=== PATIENT | male | born 1935 | race Caucasian/White ===

== ENCOUNTER 2019-02-21 20:31 | Inpatient (IN) | payer OTHER, MEDICARE ==
[~2019-02-21] VITALS: Ht 172.7 cm; Wt 114.8 kg
--- NOTE | ~2019-02-21 | HC ---
[facility] [place] [address] CONSULTATION Name: STEPHENSEYMOUR DUNNE Mateo Room #: 238-P ADM IN M.R.#: [id number] Admission: 02/22/19 ������������������ Attend Phys: Paulina De La Rosa MD Discharge: ������������������ Date of : 37 Report #: [id number] THIS REPORT FOR: //name// CC: Paulina Dailymasood DATE OF SERVICE: 02/25/2019 REASON FOR CONSULTATION: Elevating creatinine. HISTORY OF PRESENT ILLNESS: This 83-year-old gentleman with a longstanding diabetes and hypertension, has had progressive cerebellar degeneration with unsteadiness and falls and was found down on his garage floor for many hours. He presented with rhabdomyolysis and CPK greater than 12,000. He received intensive IV fluids over several days, became swollen progressively short winded and his creatinine then subsequently has been elevating. He was 2.3 at the time of admission down to 1.8 and now back up to 2.8. While the patient denies any previous renal problems, he has longstanding diabetes and proteinuria and 6 years ago at this hospital had a creatinine of 1.3. PAST MEDICAL HISTORY: Difficult to communicate with the patient as he is on CPAP and not answering questions well. He has the diabetes and hypertension, cerebellar degeneration as mentioned above. 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 He has got sleep apnea and uses CPAP at night, history of hypertension and had trauma to his left testicle and that was excised 8 years ago. HOME MEDICATIONS: Reportedly metoprolol tartrate 25 mg b.i.d., omeprazole 20 mg daily, iron, alprazolam p.r.n. and a combination of lisinopril and hydrochlorothiazide. SOCIAL HISTORY: He is a cigarette smoker. He does not use alcohol. Lives at home by himself and has the CPAP as mentioned. ALLERGIES: No known drug allergies are mentioned. REVIEW OF SYSTEMS: Very difficult to discern due to his being on CPAP and difficult to understand and communicate with. Apparently, he has had generalized weakness. He has had some generalized pain. He has not had angina. He has had progressive shortness of air, but not severe. Appetite has been fair. There is a question about his swallowing amplitude. No nausea or vomiting. PHYSICAL EXAMINATION: GENERAL: This is a somewhat overweight gentleman, somewhat catracho complected. He has CPAP on. [facility] [address] [place] [address] CONSULTATION Name: SEYMOUR MARI Room #: 238-P [facility]#: [id number] Admission: 02/22/19 ������������������ Attend Phys: Paulina De La Rosa MD Discharge: ������������������ Date of : 37 Report #: [id number] SKIN: Otherwise unremarkable. SKELETAL: Shows him to be well developed and well nourished. HEENT: Extraocular movements appear to be full and vision is intact. Mucous membranes are not examined. CPAP is on. NECK: Supple. CHEST: Shows diminished breath sounds, which are somewhat coarse and noisy. HEART: Distant. ABDOMEN: Distended and nontender. EXTREMITIES: Show trace peripheral edema throughout. NEUROLOGIC: Shows generalized weakness, but he does have a symmetric sensory and motor examination. LABORATORY DATA: His urinalysis initially did show 2+ protein and it also showed 3+ blood at the time when his CPK was over 12,000, very few red cells. Hemoglobin is 11.4, white count 14,000 and his initial white count was 20,000 with 19% bands. Sodium 138, potassium 4.7, chloride 98, bicarbonate 30, BUN 63 and creatinine 2.8. ASSESSMENT: 1. Acute on chronic kidney disease. He appears to have underlying CKD. A renal sonogram and paraprotein studies are indicated and we will check those. He may have gotten additionally fluid overloaded. His blood pressure has dropped and I am unclear about etiology for that. He is not perfusing his kidneys possibly as well with the lower blood pressure. Certainly, he does appear to be somewhat volume overloaded, but did not respond with vigorous urine output when he received IV furosemide earlier today. We will reevaluate and possibly try a higher dose of IV Lasix. He is being transferred down to ICU and at this point he may be developing acute kidney injury for unknown reasons and certainly will bear close watching over the next couple of days. 2. Rhabdomyolysis. 3. History of diabetes mellitus. 4. History of hypertension. ��������������������������������������������� ���������������������������������������� By: ��������������������������������������������� [id number] Fran Mann MD /nt
--- NOTE | ~2019-02-21 | HC ---
[facility] [place] [address] CONSULTATION Name: STEPHENSEYMOUR DUNNE Mateo Room #: 356-P ADM IN M.R.#: [id number] Admission: 02/22/19 ������������������ Attend Phys: Paulina De La Rosa MD Discharge: ������������������ Date of : 37 Report #: [id number] THIS REPORT FOR: //name// CC: Paulina Dailymasood DATE OF SERVICE: 02/24/2019 HISTORY OF PRESENT ILLNESS: The patient is an 83-year-old male with a history of cerebellar degeneration, but he notes he has had all his life vertigo, frequent falls, admitted through the ED for evaluation after a fall that occurred on 02/22/2019. He was going to his garage when he became dizzy and fell. It took him 4-5 hours to crawl to his garage track fitter to open a door and alert a neighbor who called EMS. His arms and legs were weak and "felt like " He was admitted, noted to have severe rhabdomyolysis with CK of 12,850. He had acute renal insufficiency superimposed on chronic kidney disease with BUN up to 47, creatinine 2.3. He has been rehydrated and given normal saline. He has considerable weakness. We are seeing him in rehabilitation medicine consultation. PAST MEDICAL HISTORY: Includes exogenous obesity, diabetes mellitus type 2, obstructive sleep apnea, hypertension, right lower lobectomy. ALLERGIES: No known drug allergies. MEDICATIONS: Please see the full medication listing. This includes vitamins, herbals, and supplements. Past history also includes non-insulin dependent diabetes mellitus and a left testicle removed due to trauma. HABITS: Noted to be a current every day smoker. No history of alcohol abuse. SOCIAL HISTORY: Lives in a house alone. No steps in and then 2 steps inside. Premorbid cane versus 4-wheeled walker ambulator. Notes that he has had some chronic balance problems with his cerebellar degeneration that he has had "all my life." REVIEW OF SYSTEMS: Complains of being weak, generalized. He has some diffuse muscular pain. No complaints of chest pain, shortness of breath, abdominal discomfort. PHYSICAL EXAMINATION: GENERAL: An 83-year-old pleasant, obese white male in no obvious distress. He is on 4 liters nasal cannula. NEUROLOGIC: Facies appeared symmetric. Follows basic commands. Appears to be [facility] [address] [place] [address] CONSULTATION Name: SEYMOUR MARI Mateo Room #: 356-P [facility] IN ..#: [id number] Admission: 02/22/19 ������������������ Attend Phys: Paulina De La Rosa MD Discharge: ������������������ Date of : 37 Report #: [id number] a reasonable historian. Functional range of motion of both upper extremities. Strength is a grade 3+/5. Lower extremities functional range of motion, strength is grade 3+/5. No focal calf swelling. Tone appeared to be intact. He did fairly well with [id number] upper extremities. EOMs were full. No obvious nystagmus. IMPRESSION: An 83-year-old white male with the following problem list: 1. Cerebellar degeneration with gait instability. 2. Acute rhabdomyolysis. 3. Acute renal insufficiency superimposed on chronic kidney disease. 4. Diffuse weakness and debilitation. 5. Gait instability with history of falls. 6. Diabetes mellitus type 2. 7. Obstructive sleep apnea. 8. Exogenous obesity. 9. Hypertension. PLAN: Therapy evaluations are underway. We will see if he has the therapy tolerance for an acute [address] [place] [address] inpatient rehabilitation stay. We will be glad to follow along with you regarding his rehab therapy needs. ��������������������������������������������� ���������������������������������������� By: ��������������������������������������������� 0937 1311 Feliciano Mo MD /PMT
[~2019-02-21 20:31] MED LIST: ACTOS15 MG PO; ALPRAZOLAM 0.0.25 MG PO; ASPIRIN EC325 M1 PO; ASPIRIN EC81 M1 PO; AUGMENTIN; CIPROFLOXACIN500 M1 PO; FINASTERIDE PO; HYDROCODONE-AP1 EAC6; LISINOPRIL-HCT1 EAC1 PO; LOPRESSOR25 PO; MEDROLDOSEPACK PO; METOPROLOL SUCC25 M1 PO; OMEPRAZOLE 20 M20 M1 PO; PERCOCET 5-3251 EACH PO; SLOW FE 160MG160 MG PO; TRAMADOL 50 MG50 MG PO; prostate med
[2019-02-21 20:32] VITALS: BP 91/44
[2019-02-21 22:23] LABS: HEMATOCRIT 41.1 % (42.0-52.0); HEMOGLOBIN 13.9 gm/dL (14.0-18.0); MCH 29.2 pg (26.0-34.0); MCHC 33.8 g/dL (28.0-37.0); MCV 86.4 fL (80.0-100.0); PLATELET COUNT 229 thou/uL (150-400); RBC 4.75 mil/uL (4.50-6.00); RDW 14.3 % (10.5-14.5)
[2019-02-21 22:39] LABS: ANION GAP 12 mmol/L (7-16); BUN 40 mg/dL (7-18); CALCIUM 8.6 mg/dL (8.5-10.1); CHLORIDE 100 mmol/L (98-107); CO2 27 mmol/L (21-32); CREATININE 2.3 mg/dL (0.7-1.3); GLUCOSE 138 mg/dL (74-106); POTASSIUM 4.1 mmol/L (3.5-5.1); SODIUM 139 mmol/L (136-145)
[2019-02-21 22:57] LABS: DIRECT BILIRUBIN 0.3 mg/dL (<0.1-0.3); SGOT 139 U/L (15-37); SGPT 28 U/L (30-65); TOTAL BILIRUBIN 1.2 mg/dL (<0.1-1.0); TOTAL PROTEIN 7.3 g/dL (6.4-8.2); TROPONIN-I <0.06 ng/mL (<0.06)
[2019-02-21 22:59] LABS: PLATELET ESTIMATE NORMAL
[2019-02-22 02:35] LABS: URINE BILIRUBIN NEGATIVE (Negative); URINE BLOOD 3+ (Negative); URINE CLARITY CLEAR; URINE COLOR YELLOW; URINE GLUCOSE-RANDOM* NEGATIVE (Negative); URINE KETONES NEGATIVE (Negative); URINE LEUKOCYTES-REFLEX TRACE (Negative); URINE NITRITE-REFLEX NEGATIVE (Negative); URINE PROTEIN (DIPSTICK) 2+ (Negative); URINE UROBILINOGEN 0.2 E.U./dl (0.2-1.0)
[2019-02-22 02:39] VITALS: BP 184/64
[2019-02-22 02:40] LABS: AMORPHOUS URATES Moderate /LPF (None Seen); BACTERIA-REFLEX 1-9 Few /HPF (None Seen); CASTS None Seen /LPF (None Seen); MUCUS None Seen strn/LPF (None Seen); SQUAMOUS None Seen /LPF (0-3); URINE RBC 3-10 Few /HPF (0-2); URINE WBC-REFLEX 6-15 Few /HPF (0-5)
[2019-02-22 02:41] LABS: CRYSTALS None Seen /LPF (None Seen)
[2019-02-22 04:30] VITALS: BP 145/62
[2019-02-22 05:34] LABS: HEMATOCRIT 36.3 % (42.0-52.0); HEMOGLOBIN 12.1 gm/dL (14.0-18.0); MCH 29.1 pg (26.0-34.0); MCHC 33.3 g/dL (28.0-37.0); MCV 87.4 fL (80.0-100.0); RBC 4.16 mil/uL (4.50-6.00); RDW 14.6 % (10.5-14.5); WBC 14.3 thou/uL (4.0-11.0)
[2019-02-22 06:05] LABS: ALBUMIN 2.5 g/dL (3.4-5.0); CALCIUM 7.4 mg/dL (8.5-10.1); POTASSIUM 3.8 mmol/L (3.5-5.1); TOTAL BILIRUBIN 0.9 mg/dL (<0.1-1.0); TOTAL PROTEIN 5.7 g/dL (6.4-8.2)
[2019-02-22 07:15] VITALS: BP 138/65
--- NOTE | 2019-02-22 07:24 | NUR ---
Received pt from ED at 1845. Pt AOX4. VSS. IV R AC with NS @150. Small abrasions on both knees and elbows. Pt is too weak to leave the bed. Has been having generalized pain. Gave tramadol once. ACHS. Sarmiento intact. No identified needs at the moment. Will continue to monitor.
--- NOTE | 2019-02-22 09:14 | EKG ---
[address] [employer] [place] [address] ELECTROCARDIOGRAM REPORT Name: SEYMOUR MARI Room #: 460-P ADM IN M.R.#: [id number] ������������������ Admission: 02/22/19 ������������������ Attend Phys: Paulina De La Rosa MD Discharge: ������������������ Date of : 37 Report #: [id number] ����������������������������������������������������������������� [id number] THIS REPORT FOR: //name// [facility] ED Test Date: 2019-02-21 Test Time: 20:51:02 Pat Name: SEYMOUR MARI Department: Room: 460 Gender: M Product Transfer Pumper: EDITH : 1935 Requested By: Marly Saldivar Order Number: [id number] MD: Nic Parisi Measurements Intervals [place] Rate: 95 P: 41 VT: 171 QRS: 85 QRSD: 148 T: 2 QT: 391 QTc: 492 Interpretive Statements Sinus arrhythmia Right bundle branch block Compared to ECG 09/30/2012 14:03:12 Right bundle-branch block now present Electronically Signed On 02-22-2019 9:14:01 CDT by Nic Parisi [email or web address] ��������������������������������������������� <ELECTRONICALLY SIGNED> ���������������������������������������� By: Nic Parisi MD, [facility] ��������������������������������������������� 02/22/1912 50 50 Nic Parisi MD, [facility] /EPI
[2019-02-22 15:20] VITALS: BP 128/57
[2019-02-22 20:26] VITALS: BP 141/65
--- NOTE | 2019-02-22 20:27 | NUR ---
ASSUMED CARE OF PATIENT AT 0715, PATIENT ALERT AND ORIENTED X 4. PATIENT C/O PAIN GENERALIZED OVER BODY, DUE TO FALL IN GARAGE AT HOME. PATIENT HAS BRUISING/SCRAPES/ABRASIONS TO BILATERAL ELBOWS/BILATERAL KNEES. PATIENT RECEIVED TRAMADOL 50MG 1 TABLET X 1 THIS SHIFT, JUST PARTIAL RELIEF. NOTIFIED DR LINO, ORDERS PUT IN FOR MORPHINE 4 MG IV, RECEIVED X 1 THIS SHIFT WITH GOOD RELIEF. PATIENT ALSO RECEIVED XANAX O.25 MG X 1 THIS SHIFT. PATIENT RESTED WELL AFTER BOTH GIVEN. PATIENT HAD 1 RUGHT UPPER IV AND THIS RN HAD IV TEAM/IVAN PLACE ANOTHER IV RIGHT FOREARM, PATIENT HAS NS AT 75CC/HR AND SODIUM BICARB GOING AT 75CC/HR CONTINOUS PER DR LINO. PATIENT REFUSED ALL MEALS TODAY, STATES HE HAS NO APPETITE, ENCOURAGE TO EAT SOMETHING, MAY HAVE SNACK LATER ON NIGHTSHIFT. PATIENT HAS BECKETT CATHETER IN PLACE WITH GOOD OUTPUT. WILL CONTINUE TO MONITOR.
--- NOTE | 2019-02-23 01:55 | NUR ---
Assumed care at 1845. Pt resting in bed. AOX4. VSS. BP remains stable. Sarmiento intact. Gave morphine onetime for generalized pain. Pt still hasnt left the bed. Pt also hasnt eaten all day. Last blood sugar was 107. No identified needs at the moment. Call light within reach. Will continue to monitor.
[2019-02-23 03:51] VITALS: BP 134/56
[2019-02-23 05:22] LABS: CALCIUM 7.2 mg/dL (8.5-10.1); CREATININE 1.8 mg/dL (0.7-1.3)
[2019-02-23 07:19] VITALS: BP 137/62
[2019-02-23 14:37] VITALS: BP 151/76
--- NOTE | 2019-02-23 14:57 | NUR ---
PT ADMITTED RELATED TO JENNIFER, Leukocytosis, Rhabdomyolysis. CM REVIEWED CHART AND SPOKE WITH CARE TEAM. CM MET WITH PT AT BEDSIDE THIS DAY. PT IS A&O X4. CM ROLE INTRODUCED. PT INDICATED HE LIVES ALONE IN A HOUSE WITH NO STEPS TO ENTER AND A COUPLE OF STEPS INSIDE. 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 HE INDICATED NO HH HX. PT INDICATED HE WOULD BE RECEPTIVE TO POST ACUTE CARE STAY AND HE MENTIONED THAT HIS PCP DR. EDEN INDICATED THAT 5N MIGHT BE A GOOD OPTION. CM SPOKE [facility] 5N LIAISON AND THEY WILL HAVE [facility] CONSULT TOMORROW. CM TO FOLLOW INDICATED [facility] DC PLANNING.
--- NOTE | 2019-02-23 18:22 | NUR ---
PT STABLE THROUGHOUT SHIFT. PT C/O PAIN THIS MORNING, HOWEVER MEDICATION SEEMED TO ALLEVIATE. PT HAD VERY POOR APPETITE, JUST WANTED SUPPLEMENT AT BREAKFANS AND LUNCH AND NOTHING FOR DINNER. FALL PRECAUTIONS IN PLACE, PT RESTING COMFORTABLY.
[2019-02-23 19:41] VITALS: BP 157/54
[2019-02-24 03:48] VITALS: BP 101/57
[2019-02-24 05:46] LABS: HEMATOCRIT 35.3 % (42.0-52.0); HEMOGLOBIN 11.9 gm/dL (14.0-18.0); MCH 29.4 pg (26.0-34.0); MCHC 33.6 g/dL (28.0-37.0); MCV 87.6 fL (80.0-100.0); RBC 4.03 mil/uL (4.50-6.00); RDW 15.1 % (10.5-14.5); WBC 12.4 thou/uL (4.0-11.0)
[2019-02-24 05:52] LABS: CALCIUM 7.7 mg/dL (8.5-10.1); CREATININE 2.1 mg/dL (0.7-1.3); POTASSIUM 4.2 mmol/L (3.5-5.1)
[2019-02-24 07:29] VITALS: BP 122/56
[2019-02-24 09:54] LABS: BE(vivo) 0.4 mmol/L (-2 to +3); HCO3 26.6 mmol/L (22.0-26.0); PO2 67.7 mmHg (80.0-100.0); pH 7.353 (7.360-7.450); sO2 92.5 % (92.0-98.0)
--- NOTE | 2019-02-24 10:26 | NUR ---
TOWARDS POC PT A/O X3. PT O2 SAT THIS AM WAS 79-86. HR OF 100-130'S. PROVIDER NOTIFIED. XRAY, ABG, EKG, LASIX X1 ORDERED AND CARRIED OUT. PT XFER TO 356 CCU-TELE. REPORT CALLED APPROPRIATELY.
[2019-02-24 10:29] VITALS: BP 115/54
--- NOTE | 2019-02-24 13:14 | NUR ---
PATIENT SEEN BY DR. KRISHNAMURTHY THIS DATE. PATIENT HAS QUALIFYING DX FOR ACUTE REHAB AND IS A POSSIBLE CANDIDATE. WILL CONTINUE TO FOLLOW AND SEE PATIENT'S LEVEL OF FUNCTION THROUGH THERAPY EVALUATIONS. THANK YOU FOR THIS REFERRAL.
--- NOTE | 2019-02-24 13:37 | NUR ---
SW reviewed chart and spoke with attending physician. Pt was transferred to 3W from 4W due to change in status. 5N consulted and are following pt for admission to inpt acute rehab. SW is following to assist as needed with discharge planning.
--- NOTE | 2019-02-24 14:00 | NUR ---
ARRIVED TO FLOOR AT 1015 FROM 4W DUE TO HYPOXIA AND TACHYCARDIA. PATIENT 96% ON 4L/NC, PULSE 80. DENIES SOB AND STATED FEELING BETTER. LUNGS CLEAR ANTERIORLY. RESTING QUIETLY IN BED. MAIN COMPLAINT GENERALIZED PAIN FROM FALL AT HOME. MEDICATED WITH MORPHINE AND HAD GOOD RELIEF. CONGESTED COUGH NOTED. PATIENT STATED HE STILL SMOKES A LOT. VERY PLEASANT AND COOPERATIVE. FALL PRECAUTIONS IN PLACE.
[2019-02-24 16:10] VITALS: BP 147/69
--- NOTE | 2019-02-24 19:51 | NUR ---
PATIENT HAS SLEPT MOST OF THE AFTERNOON. BRUISING NOTED TO COCCYX FROM FALL AT HOME. REFUSING MEALS STATING I HAVE NO APPETITE. DID DRINK 1 GLUCERNA FOR LUNCH. FALL PRECAUTIONS IN PLACE. REMAINS ON 4L/NC AT PRESENT WITH O2 SAT 95%. SR WITH PAC'S NOTED ON TELEMETRY. DENIED CHEST PAIN. VERY PLEASANT AND COOPERATIVE.
[2019-02-24 20:00] VITALS: BP 143/71
[2019-02-25] VITALS (35 sets, daily range): BP systolic 92–156; BP diastolic 41–71
[2019-02-25 04:35] LABS: HEMATOCRIT 34.8 % (42.0-52.0); HEMOGLOBIN 11.4 gm/dL (14.0-18.0); MCH 28.9 pg (26.0-34.0); MCHC 32.7 g/dL (28.0-37.0); MCV 88.4 fL (80.0-100.0); RBC 3.93 mil/uL (4.50-6.00); RDW 15.2 % (10.5-14.5)
[2019-02-25 04:47] LABS: CALCIUM 7.8 mg/dL (8.5-10.1); CREATININE 2.8 mg/dL (0.7-1.3); POTASSIUM 4.7 mmol/L (3.5-5.1)
[2019-02-25 04:53] LABS: HCO3 29.3 mmol/L (22.0-26.0); PCO2 58.6 mmHg (35.0-45.0); PO2 60.6 mmHg (80.0-100.0); sO2 88.7 % (92.0-98.0)
[2019-02-25 04:54] LABS: pH 7.317 (7.360-7.450)
--- NOTE | 2019-02-25 05:54 | NUR ---
ASSUMED CARE FOR PT AT 1845. DURING ASSESSMENT PT WAS ON 4L NC AND STATES HE HAS SOME GENERALIZED PAIN. IV PAIN MEDICATION GIVEN, WITH EFFECTIVE RESULTS. PT WAS RESTING COMFORTABLY MOST OF SHIFT. BECKETT INSERTED DURING ER CONTAINED LARGE AMOUNTS OF SEDIMENT AND BLADDER WAS DISTENDED. REPLACED BECKETT WITH 14 FR COUDE . AT 0400 ASSESSMENT PT 02 STATS WERE AT 86%. INCREASED O2 TO 8L AND PT STATS WERE 96%. CALLED RT FOR BREATHING TX. AUSCULTATED LUNGS, WHICH SOUNDED WET, AND RT AGREED. CALL PLACED TO DOUBLE HEAD MACHINE OPERATOR TO GIVE A HEADS UP. CALLED MEDICAL STAFF SPECIALIST NAHID RECEIVED ORDERS FOR 1X DOSE 40MG LASIX, ABG, CHEST XRAY, AND BNP WITH AM LABS. RT SUGGESTED BIPAP FOR ABOUT 4 HOURS. CONTINUOS PULSE OX IN PLACE AND 02 SATS ARE 98%. WILL CONTINUE TO ASSESS AND HOURLY ROUND. HOURLY ROUND.
--- NOTE | 2019-02-25 08:13 | EKG ---
[place] [address] [facility] [place] [address] ELECTROCARDIOGRAM REPORT Name: SEYMOUR MARI Room #: 356-P ADM IN M.R.#: [id number] ������������������ Admission: 02/22/19 ������������������ Attend Phys: Paulina De La Rosa MD Discharge: ������������������ Date of : 37 Report #: [id number] ����������������������������������������������������������������� [id number] THIS REPORT FOR: //name// [facility] Test Date: 2019-02-24 Test Time: 09:33:20 Pat Name: SEYMOUR MARI Department: Room: 356 Gender: M Earth Science Technician: Cassy LEA : 1935 Requested By: Leon Hadley Order Number: [id number] MD: Nic Parisi Measurements Intervals [place] Rate: 80 P: 8 DE: 161 QRS: 85 QRSD: 161 T: 2 QT: 440 QTc: 508 Interpretive Statements Sinus rhythm Atrial premature complex Right bundle branch block Compared to ECG 02/21/2019 20:51:02 Atrial premature complex(es) now present Electronically Signed On 02-25-2019 8:13:01 CDT by Nic Parisi [email or web address] ��������������������������������������������� <ELECTRONICALLY SIGNED> ���������������������������������������� By: Nic Parisi MD, [facility] ��������������������������������������������� 02/25/19812 2 Nic Parisi MD, [facility] /EPI
[2019-02-25 12:29] LABS: HCO3 25.4 mmol/L (22.0-26.0); PCO2 49.8 mmHg (35.0-45.0); sO2 98.6 % (92.0-98.0)
[2019-02-25 12:31] LABS: pH 7.325 (7.360-7.450)
--- NOTE | 2019-02-25 12:35 | NUR ---
PATIENT NOT MEDICALLY STABLE AT THIS TIME. WILL REASSESS PATIENT ON THURSDAY, 02/28 TO SEE IF APPROPRIATE FOR ACUTE REHAB: MEDICALLY STABLE - BUT WITH MEDICAL COMPLEXITY, PARTICIPATING IN THERAPY AND HAVING FUNCTIONAL DEFICITS. THANK YOU FOR THIS REFERRAL.
--- NOTE | 2019-02-25 13:24 | NUR ---
care of pt assumed this am @ ~0700. pt on bipap, but pt does not like to wear the bipap and co of thirst. pt states he has a cpap at home which he wears as needed. pt co of generalized and lower back pain this am, medicated w/ pain medication. pt denies n/v/d at this time. pt w/ an intact and functional willingham catheter. report called to Katalina/adolph in icu @ 1310 for transfer. rt at bs to help w/ transfer.
[2019-02-25 14:43] LABS: CALCIUM 8.1 mg/dL (8.5-10.1); CREATININE 2.8 mg/dL (0.7-1.3); POTASSIUM 4.1 mmol/L (3.5-5.1)
[2019-02-25 14:44] LABS: PROT/CREAT RATIO 0.9; URINE PROTEIN-RANDOM* 37.5 mg/dL (<11.9)
--- NOTE | 2019-02-25 15:45 | NUR ---
SW reviewed chart and spoke with nursing and attending physician. Pulmonary consulted today. Pt moved to ICU for closer monitoring. No weekend discharge planned. 5N is following for admission to inpt acute rehab when medically stable. SW is following to assist as needed with discharge planning.
--- NOTE | 2019-02-25 15:54 | 2DMMODE ---
[facility] [place] [employer] [place] [address] 2 D/M-MODE ECHOCARDIOGRAM Name: SEYMOUR MARI Room #: 238-P ADM IN ..#: [id number] ������������� Admission: 02/22/19 ������������� Attend Phys: Paulina De La Rosa Discharge: ��� ������������� ��� Date of : 39 Date of Service: 02/25/19 1554 �� Report #: [id number] �������� ��������������������������������������������[id number] THIS REPORT FOR: //name// APPROVED REPORT Study performed: 02/25/2019 12:32:03 EXAM: Comprehensive 2D, Doppler, and color-flow Echocardiogram Patient Location: Bedside Room #: 356 Status: routine BSA: 2.24 HR: 73 bpm BP: 92/52 mmHg Rhythm: NSR Other Information Study Quality: Technically DifficultTechnically Limited Indications Diabetes Dyspnea Hypertension/HDD 2D Dimensions IVC: 19.00 mm Volumes Left Atrial Volume (Systole) Single Plane 4CH: 93.25 mL Single Plane 2CH: 62.18 mL LA ESV Index: 39.00 mL/m2 Aortic Valve AoV Peak Ulysses.: 1.54 m/s AO Peak Gr.: 9.52 mmHg LVOT Max P.18 mmHg LVOT Max V: 1.02 m/s Mitral Valve E/A Ratio: 1.2 MV Decel. Time: 160.94 ms MV E Max Ulysses.: 1.01 m/s MV A Ulysses.: 0.83 m/s MV PHT: 46.67 ms IVRT: 92.27 ms [facility] [address] [place] [address] 2 D/M-MODE ECHOCARDIOGRAM Name: JACEYSEYMOUR Mateo Room #: 238-P ADM IN M.R.#: [id number] ������������� Admission: 02/22/19 ������������� Attend Phys: Paulina De La Rosa Discharge: ��� ������������� ��� Date of : 39 Date of Service: 02/25/19 1554 �� Report #: [id number] �������� ��������������������������������������������[id number] Pulmonary Valve PV Peak Ulysses.: 0.83 m/s PV Peak Gr.: 2.74 mmHg Left Ventricle The left ventricle is normal size. There is normal LV segmental wall motion. There is normal left ventricular wall thickness. The left ventricular systolic function is normal. LVEF is 55-60%. Grade II - pseudonormal filling dynamics. Right Ventricle The right ventricle is normal size. The right ventricular systolic function is normal. Atria Left atrium is dilated. The right atrium size is normal. Aortic Valve The aortic valve is normal in structure. No aortic regurgitation is present. There is no aortic valvular stenosis. Mitral Valve The mitral valve is normal in structure. There is no mitral valve regurgitation noted. No evidence of mitral valve stenosis. Tricuspid Valve The tricuspid valve is normal in structure. There is no tricuspid valve regurgitation noted. Pulmonic Valve The pulmonary valve is normal in structure. There is no pulmonic valvular regurgitation. Great Vessels The aortic root is normal in size. IVC is normal in size and collapses >50% with inspiration. Pericardium There is no pericardial effusion. <Conclusion> The left ventricle is normal size. There is normal left ventricular wall thickness. The left ventricular systolic function is normal. Grade II - pseudonormal filling dynamics. The right ventricle is normal size. [facility] [address] [place] [address] 2 D/M-MODE ECHOCARDIOGRAM Name: SEYMOUR MARI Room #: 238-P [facility] IN [facility].#: [id number] ������������� Admission: 02/22/19 ������������� Attend Phys: Paulina De La Rosa Discharge: ��� ������������� ��� Date of : 39 Date of Service: 02/25/19 155 �� Report #: [id number] �������� ��������������������������������������������[id number] Left atrium is dilated. The right atrium size is normal. The aortic valve is normal in structure. There is no mitral valve regurgitation noted. There is no tricuspid valve regurgitation noted. ��������������������������������������������� <ELECTRONICALLY SIGNED> ���������������������������������������� By: Gilberto Cherry MD ��������������������������������������������� 02/25/19 1554 53 [phone] Gilberto Cherry MD /INF
--- NOTE | 2019-02-25 16:17 | NUR ---
PT GAVE PERMISSION FOR HIS SISTER ALANNAH MARI TO GET PATIENT INFORMATION OVER THE PHONE. ALANNAH'S NUMBER IS [phone]. PLEASE CALL HER WITH ANY ROOM CHANGES OR PT STATUS CHANGES.
[2019-02-25 17:27] LABS: BE(vivo) 4.1 mmol/L (-2 to +3); HCO3 30.9 mmol/L (22.0-26.0); PCO2 57.2 mmHg (35.0-45.0); pH 7.351 (7.360-7.450); sO2 97.7 % (92.0-98.0)
--- NOTE | 2019-02-25 17:49 | NUR ---
ASSUMED CARE AT 1345. PT WAS TRANSFERRED FROM , WHERE PT WAS PLACED ON BIPAP. PT ARRIVED TO UNIT ON BIPAP AND TRYING TO TAKE MASK OFF AND TRYING TO TALK ON HIS CELL PHONE WHILE ON MASK. PT REASSURED AND TOLD IMPORTANCE OF STAYING CALM AND NOT TRYING TO TALK OVER THE BIPAP. ONCE SETTLED PT CALMED DOWN AND SLEPT FROM 1400 TO 1700. PT REMAINS ON BIPAP. WHEN PT IS AWAKE RESPIRATIONS RANGE FROM 18-33. LUNGS REMAIN COARSE WITH CRACKLES. BREATHING TREATMENTS GIVEN ORDERED. ALL OTHER VITAL SIGNS REMAIN STABLE. PT HAD A MALE FRIEND THAT STOPPED BY TO CHECK ON HIM AND PT'S PCP STOPPED IN AND STATED HE HAS BEEN IN CONTACT WITH THE PT'S DAUGHTER. RN IN ICU SPOKE WITH PT'S SISTER WITH THE PT'S PERMISSION. WILL CONTINUE TO CLOSELY MONITOR PT.
[2019-02-26] VITALS (56 sets, daily range): BP systolic 99–186; BP diastolic 39–102
[2019-02-26 04:57] LABS: BE(vivo) 5.6 mmol/L (-2 to +3); HCO3 32.1 mmol/L (22.0-26.0); PCO2 56.2 mmHg (35.0-45.0); PO2 91.4 mmHg (80.0-100.0); pH 7.374 (7.360-7.450); sO2 96.6 % (92.0-98.0)
[2019-02-26 05:27] LABS: HEMATOCRIT 32.5 % (42.0-52.0); HEMOGLOBIN 10.8 gm/dL (14.0-18.0); MCH 29.2 pg (26.0-34.0); MCHC 33.2 g/dL (28.0-37.0); MCV 88.1 fL (80.0-100.0); RBC 3.69 mil/uL (4.50-6.00); WBC 10.8 thou/uL (4.0-11.0)
[2019-02-26 06:00] LABS: ALBUMIN 1.7 g/dL (3.4-5.0); CALCIUM 7.9 mg/dL (8.5-10.1); CREATININE 2.8 mg/dL (0.7-1.3); PHOSPHORUS 5.5 mg/dL (2.5-4.9); POTASSIUM 4.3 mmol/L (3.5-5.1)
--- NOTE | 2019-02-26 07:00 | NUR ---
ASSUMED CARE OF PT AT 1900 YESTERDAY. PT ON BIPAP THROUGHOUT THE NIGHT. PT TOLERATED WELL, BUT WOULD GET RESTLESS AT TIMES. PT'S PENIS AND SCROTUM EDEMATOUS AND RED, WITH WHITE/YELLOW PUS LEAKING AROUND CATHETER. PT C/O SEVERE PAIN THERE WHEN MOVED OR CLEANED. SMALL WOUND FOUND ON POSTERIOR SCROTUM. NOTIFIED Tanya OZUNA RESOURCE CONSERVATIONIST AND CULTURE OF WOUND ORDERED. DR. COLEMAN ALSO INFORMED OF THIS WHEN ROUNDING THIS MORNING. PT GIVEN SIPS OF WATER WITH PILLS; PT STARTED COUGHING AFTER A SMALL SIP OF WATER THIS MORNING-SPEECH THERAPY MIGHT NEED TO EVALUATE PT BEFORE RESUMING DIET. WILL CONTINUE TO MONITOR.
--- NOTE | 2019-02-26 09:15 | NUR ---
Received in report that draining wound was noted on pt's scrotum and area very painful. Pictures and wound documentatin needed to be initiated. On initial assessment pt indeed having significant generalized pain and pain in scrotum. Difficult to fully assess scrotal wound due to positioning and guarding from patient due to pain. Morphine 4 mg given IV for pain at 0755. Bath started while allowing pain medication to take effect. Pt turned onto left side during bath to allow washing and inspection of scrotal wound. Drainage pad under patient had area saturated with red drainage. Open sores noted on underneath side of scrotum and noted to have red drainage oozing from the open wound. Pt experiencing great deal of pain with any touch to scrotal region. Also noted to have purulent drainage from urinary meatus. Scrotal tissue dusky and dark reddish. Foul odor present from area. Area gently cleansed and clean linens placed on bed. Will notify Dr Nixon of findings.
--- NOTE | 2019-02-26 09:35 | NUR ---
Call placed to Dr Nixon's pager approx [phone] and call returned. MD informed of scrotal wound and great deal of pain associated with the wound. Dr Nixon indicated he would come down to see the patient.
--- NOTE | 2019-02-26 11:05 | NUR ---
Dr Nixon here and inspected the patients scrotal wound. Orders received. Culture was already sent to the lab.
[2019-02-26 13:10] LABS: BE(vivo) 4.8 mmol/L (-2 to +3); PCO2 60.5 mmHg (35.0-45.0); PO2 111.2 mmHg (80.0-100.0); pH 7.341 (7.360-7.450); sO2 97.7 % (92.0-98.0)
--- NOTE | 2019-02-26 13:10 | NUR ---
Pt was transported to radiology for CT scan of abdomen/pelvis. Upon return to room pt had increased heart rate to 150's, Call placed to Dr Nixon and orders received for Metoprolol, EKG and Troponin level.
[2019-02-26 14:43] LABS: HEMATOCRIT 33.9 % (42.0-52.0); MCH 28.9 pg (26.0-34.0); MCHC 32.4 g/dL (28.0-37.0); MCV 89.3 fL (80.0-100.0); PLATELET COUNT 218 thou/uL (150-400); RBC 3.79 mil/uL (4.50-6.00); RDW 15.5 % (10.5-14.5); WBC 10.6 thou/uL (4.0-11.0)
[2019-02-26 14:45] LABS: CALCIUM 8.4 mg/dL (8.5-10.1); CREATININE 2.5 mg/dL (0.7-1.3)
--- NOTE | 2019-02-26 14:45 | NUR ---
Status report was given to Dr Garcia. Informed of completion of CT scan and change in rhythm with rate up to 150's. BP remains stable.
[2019-02-26 15:05] LABS: ABSOLUTE NEUTROPHILS 9.3 thou/uL (1.4-8.2)
--- NOTE | 2019-02-26 15:45 | NUR ---
Status report given to Dr Nixon. Pt less alert. Pt is arousable but drifts back to sleep. Coordinating with tranfer center at [facility] to get patient sent over [facility].
--- NOTE | 2019-02-26 16:34 | HC ---
[facility] [place] [address] [place] [address] CONSULTATION Name: SEYMOUR MARI Room #: 238-P ADM IN M.R.#: [id number] Admission: 02/22/19 ������������������ Attend Phys: Paulina De La Rosa MD Discharge: ������������������ Date of : 37 Report #: [id number] THIS REPORT FOR: //name// CC: Paulina Cassidy REFERRAL PHYSICIAN: Dr. Leon Hadley. REASON FOR REFERRAL: Acute onset dyspnea. HISTORY OF PRESENT ILLNESS: The patient is an 83-year-old white male who was admitted on 02/22 following a fall. Since admission, the patient was found to be more hypoxic and confused. He has also developed worsening renal failure. A pulmonary consultation was requested. The patient apparently was found on the garage floor down for a number of hours, was brought to the ER, was found to be more alert, oriented to place and multiple abrasions was noted on the knees. The patient had complained of lightheadedness. Since admission, he was found to have rhabdomyolysis. Since admission, he has developed oliguria with worsening hypoxia and confusion overnight. He is currently on BiPAP. The patient has a history of sleep apnea and is on CPAP at home. Currently, he is arousable, awake and in no distress. PAST MEDICAL HISTORY: History of cerebellum degenerative disorder along with vertigo; diabetes mellitus type 2; obstructive sleep apnea on home CPAP; biopsies of lung mass, benign; right lower lobe lobectomy; hypertension, status post orchiectomy in 2010 due to trauma by Dr. Herzog. ALLERGIES: None to medications. HOME MEDICATIONS: Include Lopressor 25 mg p.o. b.i.d., omeprazole once a day, Ultram 50 mg once a day, iron sulfate once a day, alprazolam 0.25 mg p.o. q. 6 hours p.r.n., lisinopril/ hydrochlorothiazide 20/12.5 mg p.o. q. day. FAMILY HISTORY: Unknown. SOCIAL HISTORY: The patient does smoke. No history of alcohol use. REVIEW OF SYSTEMS: As mentioned above. Otherwise, 10-point system review is negative. PHYSICAL EXAMINATION: GENERAL: He is awake, alert, appears mildly dyspneic, tolerating BiPAP. VITAL SIGNS: Temperature is 97.6 degrees Fahrenheit, pulse is 67, respiratory rate is 18, blood pressure is 92/52 mmHg and saturation 100%. [address] [address] CONSULTATION Name: SEYMOUR MARI Room #: 238-P [facility] IN ..#: [id number] Admission: 02/22/19 ������������������ Attend Phys: Paulina De La Rosa MD Discharge: ������������������ Date of : 37 Report #: [id number] HEENT: Normocephalic and atraumatic. NECK: Supple, without any lymphadenopathy or thyromegaly. CHEST: Breath sounds are fair. Few scattered crackles in the bases. No wheezes. CARDIOVASCULAR: Normal S1 and S2. No murmurs or gallop. There is no JVD, no carotid bruit. Pulses are 2+/4+ bilaterally. ABDOMEN: Soft, nontender, mildly obese. No organomegaly or masses felt. GENITOURINARY: Deferred. RECTAL: Deferred. EXTREMITIES: No cyanosis, clubbing, edema. DERMATOLOGIC: Examination revealed multiple abrasions around both knees noted. LABORATORY DATA: Chest x-ray shows cardiomegaly, mild right lower lobe infiltrates. EKG shows sinus rhythm, right bundle branch block. Electrolytes: Sodium 138, potassium 4.4, chloride 98, CO2 is 30, BUN is 63, creatinine is 2.7 and on admission it was 2.3. Liver enzymes are mildly elevated. WBC 14,000, hemoglobin 11.4, platelets are normal. Albumin 2.5. Arterial blood gas revealed pH 7.32, pCO2-58 and pO2 60 on 8 liters of O2. IMPRESSION: 1. Spodq-af-ydpfmwn hypercapnic hypoxic respiratory failure in this 83-year-old white male, probably related to underlying sleep apnea, but with his fall unclear whether the patient may have sustained a closed head injury. Pneumonia is possible. 2. History of sleep apnea on home CPAP. 3. Recent fall sustaining some skin abrasion involving both knees. With his altered mental status, would recommend CT imaging of the brain to rule out closed head trauma. 4. Acute kidney injury. Creatinine has now started to climb up to 2.8 on admission was 2.3. He was found to have rhabdomyolysis. Lasix was recently given without much response. He was given Lasix, which was discontinued. Renal has been consulted. 5. Diabetes mellitus type 2. 6. History of cerebellum degeneration with vertigo. 7. Hypertension. 8. Status post right lower lobe lobectomy for benign mass. RECOMMENDATION: With worsening renal function, mental status change, would recommend transfer to ICU for closer monitoring. The urine output should be closely monitored. Recommend maintaining adequate urine output of greater than 20 to 40 mL an hour if possible. CT imaging of the brain given recent fall and confusion. Continue BiPAP. DVT and GI prophylaxis is indicated. [facility] [address] [place] [address] CONSULTATION Name: SEYMOUR MARI Mateo Room #: 238-P ADM IN .R.#: [id number] Admission: 02/22/19 ������������������ Attend Phys: Paulina De La Rosa MD Discharge: ������������������ Date of : 37 Report #: [id number] Thank you for this consultation. ��������������������������������������������� <ELECTRONICALLY SIGNED> ���������������������������������������� By: Milo Garcia MD ��������������������������������������������� 02/26/19 1634 1446 0041 Milo Garcia MD /nt
[2019-02-26 17:29] LABS: BE(vivo) 3.1 mmol/L (-2 to +3); HCO3 31.8 mmol/L (22.0-26.0); PCO2 71.2 mmHg (35.0-45.0); pH 7.268 (7.360-7.450)
[2019-02-26 17:30] LABS: PO2 127 mmHg (80.0-100.0)
--- NOTE | 2019-02-26 17:40 | NUR ---
Spoke with Destiney, nursing supervisor agricultural education and Lead Ios Developer quality control manager and ICU charge nurse Margo for assistance to setting up transport to [facility]. Dr MG notified recent ABG results and transport capabilities [facility]. Dr Mg inidicated pt may be transported via ambulance with the capability of BVM or CPAP. Call placed to Dr Nixon's page to report ABG result.
--- NOTE | 2019-02-26 17:52 | NUR ---
CONSULTED TO PLACE A CENTRAL LINE FOR A PATIENT DISCHARGING TO . ORDER AND CONSENT NOTED. THE PROCEDURE WELL RISKS AND BENIFITS DISCUSSED WITH THE PATIENT AND HE VERBALIZED UNDERSTANDING. THE RIGHT JUGULAR WAS WIDLEY PATENT. A#6F JACC TRIPLE LUMEN ATTEMPTED PER POLICY. A STAT CHEST XRAY SHOWING LINE CURLED BACK ON ITSELF AND IN NOT IN PROPER POSITION. USING STERILE TECHNIQUE A OVER THE WIRE EXCHANGE WAS ATTEMPTED TO UNCOIL THE LINE- UNSUCESSFUL WIRE WOULD NOT ADVANCE DUE TO COILING OF THE LINE. A 3RD ATTEMPT WAS MADE WITH A 5F TRIPLE LUMEN PER POLICY. AFTER MULTIPLE ATTEMPTS TO PASS THE CLAVICAL AREA WITHOUT RESISTANCE AND MULTIPLE POSITION CHANGES, THE LINE WAS PLACED IN PROPER POSITION PER XRAY RESULTS AFTER PLACEMENT. THE PATIENT TOLERATED THIS WELL WITHOUT COMPLAINTS. LINE WAS SECURED AND RELEASED FOR USE
--- NOTE | 2019-02-26 18:12 | NUR ---
Report called to Katiana Camilo, receiving nurse at [facility]. Pt will go to room [facility]- Medical ICU.
--- NOTE | 2019-02-26 18:16 | NUR ---
Dr Nixon came to see patient and reviewed ABG results. Decision was made to intubate patient. MD (Dr Watkins) came to intubate. Triple lumen IJ central line was placed by IV nurse.
--- NOTE | 2019-02-26 19:00 | NUR ---
Pt sent to [facility] via ambulance. Pt was intubated with 8.0 @ 26 at [facility]. Placement was confirmed with xray and tube was adjusted by RT 1 cm from initial placement of [address] Ruiz called patient's daughter Bonnie Zelaya to give update on patient's status. Total of four IV pumps in multi pump clark sent with patient. Yo.Quique., transistor tester stated he would bring the pumps back tomorrow morning. Personal belongings, copy of chart and transfer forms sent with patient.
--- NOTE | 2019-02-26 19:20 | NUR ---
Update called to Guerita at [facility]. Call placed to pt's daughter to let her know patient had left via ambulance for [facility] at 1900. Daughter appreciative of calls to keep her informed. Daughter planning to come to on Thursday
[2019-02-27 11:08] LABS: KAPPA FREE LIGHT CHAINS 85.1 mg/L (3.3-19.4); KAPPA/LAMBDA RATIO 2.28 (0.26-1.65); LAMBDA FREE LIGHT CHAINS 37.4 mg/L (5.7-26.3)
--- NOTE | 2019-02-27 11:52 | EKG ---
[address] [address] ELECTROCARDIOGRAM REPORT Name: JACEYSEYMOUR Mateo Room #: 238- DIS IN M.R.#: [id number] ������������������ Admission: 02/22/19 ������������������ Attend Phys: Paulina De La Rosa MD Discharge: 02/26/19 ������������������ Date of : 37 Report #: [id number] ����������������������������������������������������������������� [id number] THIS REPORT FOR: //name// [facility] Test Date: 2019-02-26 Test Time: 13:19:01 Pat Name: SEYMOUR MARI Department: Room: 238 P Gender: M Director Industrial Nursing: Cassy LEA : 1935 Requested By: Irvin Nixon Order Number: [id number] MD: Gilberto Cherry Measurements Intervals [place] Rate: 123 P: MI: QRS: 83 QRSD: 150 T: 2 QT: 404 QTc: 578 Interpretive Statements Junctional tachycardia Right bundle branch block Compared to ECG 02/24/2019 09:33:20 Junctional tachycardia now present Sinus rhythm no longer present Atrial premature complex(es) no longer present Electronically Signed On 02-27-2019 11:51:57 CDT by Gilberto Cherry [email or web address] ��������������������������������������������� <ELECTRONICALLY SIGNED> ���������������������������������������� By: Gilberto Cherry MD ��������������������������������������������� 02/27/19 1151 1319 1319 Gilberto Cherry MD /EPI
[2019-02-28 20:07] LABS: GLOBULIN TOTAL 3.7 g/dL (2.2-3.9); M-SPIKE Not Observed g/dL (Not Observed)
== END 2019-02-26 19:00 | disposition short-term general hospital (02) | DRG 871 ==
LOC: ER 20:31 → EROBS 02-22 02:05 → 4W 02-22 02:05 → EROBS 02-22 02:05 → 4W 02-22 02:40 → 3W 02-24 09:55 → ICU 02-25 14:12
PROVIDERS: Emergency Medicine; Hospitalist; Internal Medicine Nephrology; Internal Medicine Pulmonary Disease; Nurse Practitioner Acute Care; Nurse Practitioner Family; ADMIT Internal Medicine
PROC: 5A09357 Assistance with Respiratory Ventilation, Less than 24 Consecutive Hours, Continuous Positive Airway Pressure (ICD-10-PCS; principal; 2019-02-25)
PROC: 5A09357 Assistance with Respiratory Ventilation, Less than 24 Consecutive Hours, Continuous Positive Airway Pressure (ICD-10-PCS; 2019-02-26)
DX: A41.9 Sepsis, unspecified organism (principal); J96.21 Acute and chronic respiratory failure with hypoxia; J96.22 Acute and chronic respiratory failure with hypercapnia; N17.9 Acute kidney failure, unspecified; M62.82 Rhabdomyolysis; I50.30 Unspecified diastolic (congestive) heart failure; I13.0 Hypertensive heart and chronic kidney disease with heart failure and stage 1 through stage 4 chronic kidney disease, or unspecified chronic kidney disease; R65.20 Severe sepsis without septic shock; D72.829 Elevated white blood cell count, unspecified; E66.09 Other obesity due to excess calories; G47.33 Obstructive sleep apnea (adult) (pediatric); G31.9 Degenerative disease of nervous system, unspecified; N18.9 Chronic kidney disease, unspecified; Z60.2 Problems related to living alone; E11.22 Type 2 diabetes mellitus with diabetic chronic kidney disease; K21.9 Gastro-esophageal reflux disease without esophagitis; R00.0 Tachycardia, unspecified; D64.9 Anemia, unspecified; E78.5 Hyperlipidemia, unspecified; N28.1 Cyst of kidney, acquired; N49.2 Inflammatory disorders of scrotum; Z68.38 Body mass index [BMI] 38.0-38.9, adult; Z79.899 Other long term (current) drug therapy
CPT/HCPCS: 10040; 10203; 10879

== ENCOUNTER 2020-11-26 09:18 | Inpatient (IN) | payer OTHER, MEDICARE ==
[~2020-11-26] VITALS: Ht 172.7 cm; Wt 107.8 kg
[~2020-11-26 09:18] MED LIST changes: +FERRETTS325 MG PO; -SLOW FE 160MG160 MG PO
[2020-11-26 09:19] VITALS: BP 128/51
[2020-11-26 10:06] LABS: HEMATOCRIT 40.2 % (42.0-52.0); HEMOGLOBIN 12.9 gm/dL (14.0-18.0); MCH 30.7 pg (26.0-34.0); MCHC 32.2 g/dL (28.0-37.0); MCV 95.4 fL (80.0-100.0); PLATELET COUNT 183 thou/uL (150-400); RBC 4.21 mil/uL (4.50-6.00); RDW 14.3 % (10.5-14.5); WBC 7.8 thou/uL (4.0-11.0)
[2020-11-26 10:21] LABS: ANION GAP 7 mmol/L (7-16); BUN 52 mg/dL (7-18); CALCIUM 8.3 mg/dL (8.5-10.1); CHLORIDE 103 mmol/L (98-107); CO2 27 mmol/L (21-32); CREATININE 1.9 mg/dL (0.7-1.3); GLUCOSE 92 mg/dL (74-106); POTASSIUM 5.1 mmol/L (3.5-5.1); SODIUM 137 mmol/L (136-145)
[2020-11-26 10:31] LABS: ALBUMIN 3.2 g/dL (3.4-5.0); SGOT 15 U/L (15-37); SGPT 13 U/L (16-63); TOTAL BILIRUBIN 0.6 mg/dL (0.2-1.0); TOTAL PROTEIN 7.2 g/dL (6.4-8.2); TROPONIN-I <0.06 ng/mL (<0.06)
[2020-11-26 10:32] LABS: APTT 33.9 Seconds (24.5-32.8); INR 1.1; PROTIME 11.6 Seconds (9.3-11.4)
[2020-11-26 11:35] LABS: ABSOLUTE NEUTROPHILS 6.2 thou/uL (1.4-8.2); METAMYELOCYTES 1 %
[2020-11-26 11:36] LABS: ANISOCYTOSIS SLIGHT
[2020-11-26 11:51] VITALS: BP 130/53
--- NOTE | 2020-11-26 11:56 | NUR ---
REPORT REC'D FROM ASHLIE IN ED. PT WILL GO TO RM 351.
[2020-11-26 12:30] VITALS: BP 124/53
--- NOTE | 2020-11-26 12:33 | NUR ---
PT TO UNIT AT 1215. LETHARGIC, HYPOXIA. INCREASED O2 TO 10L, PAGED RT. PT HAS PENIL DISCHARGE, YELLOW/GREEN. PT IN CLOTHES HE STATES THAT HE HAS NOT CHANGED IN "DAYS" UNDERWEAR SOILED.
[2020-11-26 12:36] VITALS: BP 124/53
[2020-11-26] MEDS ORDERED: NORVASC10 MG PO (15:38)
[2020-11-26] MEDS ORDERED: ATORVASTATIN CA20 MG PO (15:39)
--- NOTE | 2020-11-26 15:40 | NUR ---
UNABLE TO COMPLETE MED REC FOR ADMIT OF PT. PT IS POOR HISTORIAN. PT DPOA DOES NOT KNOW WHAT MEDS HE IS ON. PHARMACY REPORTS PT HAS NOT FILLED MANY PRESCRIPTIONS SINCE AUGUST 2020 OR BEFORE. PT OTHER AUTHORIZED CONTACT, BERNARD, IS "JUST A NEIGHBOR" AND DOES NOT HANDLE HIS MEDS. SHE DOES REPORT PT HAS A FEMALE NURSE THAT COMES TO HIS HOUSE. PT DOES NOT REMEMBER WHO THE NURSE IS OR WHAT COMPANY SHE WORKS FOR.
[2020-11-26 16:01] VITALS: BP 114/47
--- NOTE | 2020-11-26 16:05 | NUR ---
THIS RN SPOKE WITH PT DTR/DPOA. SHE LIVES IN [place] AND DOES NOT PROVIDE ANY CARES FOR PT NOR DOES SHE HAVE CURRENT MED LIST. SHE DOES STATE PT IS A DIABETIC, MOSTLY DIET CONTROLLED SINCE LAST YEAR.
--- NOTE | 2020-11-26 16:15 | NUR ---
PT NEGATIVE COVID RESULT. LEFT MESSAGE WITH ANDRIY.
--- NOTE | 2020-11-26 18:49 | NUR ---
PT DTR STATES FEMALE THAT COMES OVER MAY NOT BE A NURSE, BUT A FURNITURE CLEANER THAT COMES TWICE WEEKLY.
[2020-11-26 19:45] VITALS: BP 100/79
[2020-11-27 03:45] VITALS: BP 126/50
[2020-11-27 05:41] LABS: HEMATOCRIT 41.6 % (42.0-52.0); HEMOGLOBIN 13.2 gm/dL (14.0-18.0); MCH 30.9 pg (26.0-34.0); MCHC 31.7 g/dL (28.0-37.0); MCV 97.6 fL (80.0-100.0); RBC 4.26 mil/uL (4.50-6.00); RDW 14.3 % (10.5-14.5); WBC 8.1 thou/uL (4.0-11.0)
[2020-11-27 05:50] LABS: CALCIUM 8.2 mg/dL (8.5-10.1); CREATININE 2.4 mg/dL (0.7-1.3)
[2020-11-27 05:57] LABS: POTASSIUM 5.9 mmol/L (3.5-5.1)
--- NOTE | 2020-11-27 06:30 | NUR ---
PT IS A/0X4. 02 IS AT 8L, LUNGS DIMINISHED, CRACKLES, AND WHEEZING. BECKETT OUTPUT WAS 550ML. TELE MONITOR SHOWS SB MOST OF SHIFT. PT HAS NON PRODUCTIVE COUGH. NO FEVER. ONLY COMPLAINT WAS PT BUTTOCK WAS HURTING.
--- NOTE | 2020-11-27 06:39 | NUR ---
VSS OVERNIGHT. PT PLACED ON NOCTURNAL SLEEP STUDY. AT [address] PT BACK ON 1L DUE TO SATS DROPPING INTO MID 80'S, AFTER 02 PLACED SATS MAINTAINED IN 90'S. PT WILL CALL MULTIPLE TIMES. TELE SHOWS SR/ST. PT REQUESTED BENADRYL FOR ITCHY BACK, RX FOR 25MG PRN Q6 WITH GOOD RESULTS.
--- NOTE | 2020-11-27 07:18 | EKG ---
[place] [address] [facility] [address] [place] [address] ELECTROCARDIOGRAM REPORT Name: SEYMOUR MARI Mateo Room #: 351-P ADM IN M.R.#: [id number] Admission: 11/26/20 Attend Phys: Talita Martin MD Discharge: Date of : 37 Report #: [id number] [facility] ED Test Date: 2020-11-26 Test Time: 10:03:49 Pat Name: SEYMOUR MARI Department: Room: 351 Gender: M Posting Machine Operator: WOLF : 1935 Requested By: Kev Rose Order Number: [id number] MD: Tomas Villalpando Measurements Intervals [place] Rate: 61 P: 5 NE: 184 QRS: 121 QRSD: 162 T: 21 QT: 485 QTc: 489 Interpretive Statements Sinus rhythm RBBB and LPFB Compared to ECG 02/26/2019 13:19:01 Left posterior fascicular block now present Junctional tachycardia no longer present Electronically Signed On 11-27-2020 7:18:05 CDT by Tomas Villalpando [email or web address] <ELECTRONICALLY SIGNED> By: Tomas Villalpando MD, [facility] 11/27/20 0718 02 02 Tomas Villalpando MD, FAC /EPI
[2020-11-27 07:31] VITALS: BP 124/49
--- NOTE | 2020-11-27 07:43 | NUR ---
ASSUMED PT CARE AT SHIFT CHANGE, PT HAS SLIGHT PAIN IN REAR END FROM BED. POSITIONED TO R SIDE, MEDICATION ADMINISTERED. PT STATES THAT HE IS "TIRED" AND IS READY TO . WHEN ASKED IF HE IS SUICIDAL, HE DENIES. JUST STATES THAT "I AM READY TO NOT DO ALL THIS, IT'S TOO HARD TO KEEP UP WITH MY HEALTH" PT IS OK WITH SPIRITUAL CONSULT, REQUESTS HOSPICE CONSULT. PT IS NOT SURE HE COULD AFFORD SNF, WILL NEED SW ASSIST.
--- NOTE | 2020-11-27 11:37 | NUR ---
INITIAL ASSESSMENT: Received consult. SW reviewed chart and spoke with nursing and attending physician. Pt was admitted from home due to hypoxia/CHF. Pt placed in Enhanced Isolation due to COVID. Pt's test is negative. Isolation precautions discontinued. Pt is on 9L of O2. SW met with pt at bedside. Introduced role of SW. Pt is alert/orientated. Pt reports he lives at home alone. Prior to admission, pt was using a walker. 2 steps to enter his home. No steps inside. Pt was not using home O2. No hx of HH or post-acute placement. Pt's PCP is Dr. Cassidy. Pt has asked about having a palliative care consult to discuss treatment goals. Consult ordered. Pt is a full code. Pt states his dtr lives in [place]. Pt has a cousin who lives locally. PT/OT is working with pt. Awaiting input from palliative care consult at this time. SW is following to assist as needed with discharge planning.
--- NOTE | 2020-11-27 15:14 | NUR ---
PAGED DR CASTELLANOS REGARDING PT INABILITY TO DRINK THE PATIROMER.
[2020-11-27 15:40] VITALS: BP 134/56
[2020-11-27 17:07] LABS: BE(vivo) -3.5 mmol/L (-2 to +3); HCO3 25.5 mmol/L (22.0-26.0); PCO2 64.6 mmHg (35.0-45.0); PO2 59.3 mmHg (80.0-100.0); pH 7.214 (7.360-7.450); sO2 84.5 % (92.0-98.0)
--- NOTE | 2020-11-27 17:22 | NUR ---
SPOKE TO DR PIKE REGARDING CRITICAL LAB VALUES. RT PAGED AND WILL BRING BIPAP. DR MG PAGED.
[2020-11-27 18:45] VITALS: BP 132/52
[2020-11-27 19:42] VITALS: BP 142/54
[2020-11-28 04:18] VITALS: BP 141/58
--- NOTE | 2020-11-28 06:15 | NUR ---
PT IS A/0X4. POC HAS BEEN MOVED TO COMFORT/PALLIATIVE CARE. ORDER IS NEEDED FOR STATUS CHANGE. DR. THAO STATES INTENTION BUT NO ORDER WAS PLACED. BECKETT IN PLACE WITH 850 OUT. PT STATES HE IS UNCOMFORTABLE IF HE LAYS ON HIS BACK DUE TO PAIN THE BUTTOCK AREA. PO PAIN MEDICATION GIVEN WITH GOOD RESULT.
[2020-11-28 08:08] VITALS: BP 141/57
[2020-11-28 10:48] LABS: HEMOGLOBIN 13.1 gm/dL (14.0-18.0); MCH 30.4 pg (26.0-34.0); MCHC 31.8 g/dL (28.0-37.0); MCV 95.7 fL (80.0-100.0); RBC 4.29 mil/uL (4.50-6.00); RDW 13.9 % (10.5-14.5)
--- NOTE | 2020-11-28 12:09 | NUR ---
PT HAS BEEN MOVED TO PALLIATIVE/COMFORT CARE. PATIENT WOULD NEED A NEW OT EVALUATION ORDER TO REASSESS APPROPRIATENESS OF OT WITH STATUS CHANGE. OTHERWISE, PT WILL NOT BE SEEN FOR FURTHER OT
[2020-11-28 12:32] LABS: CALCIUM 8.3 mg/dL (8.5-10.1); CREATININE 2.1 mg/dL (0.7-1.3); MAGNESIUM 1.7 mg/dL (1.8-2.4); POTASSIUM 5.5 mmol/L (3.5-5.1)
--- NOTE | 2020-11-28 13:22 | NUR ---
JOSESITO reviewed chart and spoke with nursing and attending physician. Pt remains on IV lasix and 8L of O2. Palliative care physician met with pt, cousin and spoke with pt's dtr via phone last evening. Pt is a DNR and requests comfort care. JOSESITO met with pt and his cousin at bedside this morning to discuss plan of care and referral to [facility]. Pt is agreeable with referral. Pt's dtr will be arriving in this afternoon around 1500 from [place]. Pt requests referral and eval by [facility] to be completed as soon as possible. JOSESITO faxed referral and spoke with intake. photoengraving proofer apprentice, Sridevi, to do onsite eval this afternoon around 1300. Pt's nurse updated. Outside the hospital DNR Form is signed and on pt's chart. Awaiting input from Hospice at this time. JOSESITO is following to assist as needed with discharge planning.
--- NOTE | 2020-11-28 13:31 | NUR ---
PT HAS GONE TO PALLIATIVE/COMFORT CARE AND OT IS NOT D/C.
[2020-11-28 17:15] VITALS: BP 145/49
--- NOTE | 2020-11-28 18:40 | NUR ---
CARE TAKEN OVER THIS AM, PT ALERT AND ORIENTED X4, DR. CURRY CONSULTED FOR PALLIATIVE CARE. PAIN MED GIVEN PER ORDER. PT ON 8L OF OXYGEN, SOB WITH EXERTION. NO DISTRESS NOTED. PT FAMILY VISITING. HOSPICE CAME TO [facility] PT. PT RESPOSITION FOR COMFORT. DENIES ANY NEEDS AT MOMENT. FALL PRECAUTIONS IN PLACE.
[2020-11-28 19:49] VITALS: BP 147/62
[2020-11-29 04:07] VITALS: BP 161/73
--- NOTE | 2020-11-29 05:53 | NUR ---
PT ON 8L AND BREATH SOUNDS ARE COURSE AND WITH CRACKLES. 40MG OF LASIX GIVEN VIA IV. PT REFUSED 2100 HOURS HYDROCODONE. PT REFUSED 0600 HYDROCODONE. THEN AT CHANGED HIS MIND DUE TO HAVING A PAIN THE BUTTOCK. PT KEEPS STATING, "I'M DYING", AND CAN YOU TELL MY DAUGHTER TO PUT MY CAR IN MY PROCESSION. NO OTHER COMPLAINTS.
[2020-11-29 06:00] LABS: HEMATOCRIT 40.4 % (42.0-52.0); HEMOGLOBIN 13.1 gm/dL (14.0-18.0); MCH 30.9 pg (26.0-34.0); MCHC 32.6 g/dL (28.0-37.0); MCV 94.8 fL (80.0-100.0); RBC 4.26 mil/uL (4.50-6.00); WBC 6.9 thou/uL (4.0-11.0)
[2020-11-29 06:18] LABS: CALCIUM 8.3 mg/dL (8.5-10.1); CREATININE 1.8 mg/dL (0.7-1.3); MAGNESIUM 1.5 mg/dL (1.8-2.4); POTASSIUM 4.9 mmol/L (3.5-5.1)
[2020-11-29 07:39] VITALS: BP 138/58
[2020-11-29 09:10] VITALS: BP 138/58
--- NOTE | 2020-11-29 10:40 | NUR ---
CARE ASSUMED AT 0700, PT ALERT AND ORIENTED X4, DENIES ANY CHEST PAIN, NAUSEA AND VOMITTING. MORPHINE GIVEN FOR PAIN. PT REPOSITION WHEN NEEDED. PT DAUGHTER VISITING, UPDATED ABOOUT PT CARE. SOB WITH EXERTION, ON 8L OF OXYGEN. FALL PRECAUTION IN PLACE.
--- NOTE | 2020-11-29 15:32 | NUR ---
DISCHARGE NOTE: SW reviewed chart and spoke with nursing and attending physician. SW met with pt and dtrBonnie, at bedside. Pt resting soundly during SW visit. Pt's dtr hopeful pt meets admission criteria for [facility]. Pt's dtr is agreeable with plan for transfer to the hospice house pending acceptance and bed availability. SW explained process for ambulance transportation. JOSESITO spoke with Sridevi at [facility], who had received report from pt's nurse. Pt does meet admission criteria for the [facility] [place], and they have a room available today. SW arranged ambulance transportation for 1200 per [facility]. Outside the hospital DNR form faxed to the facility for review. Nursing called report to the hospice house. Pt's family aware and agreeable. No additional SW needs identified at this time, but is available to assist should needs arise.
== END 2020-11-29 13:55 | disposition hospice, home (50) | DRG 291 ==
LOC: ER 09:18 → 3W 11:24 → EROBS 11:24 → 3W 12:11
PROVIDERS: Emergency Medicine; Internal Medicine; ADMIT Internal Medicine; ATTEND Internal Medicine
PROC: 05HF33Z Insertion of Infusion Device into Left Cephalic Vein, Percutaneous Approach (ICD-10-PCS; principal; 2020-11-26)
PROC: 5A0935A Assistance with Respiratory Ventilation, Less than 24 Consecutive Hours, High Flow/Velocity Cannula (ICD-10-PCS; 2020-11-27)
DX: I13.0 Hypertensive heart and chronic kidney disease with heart failure and stage 1 through stage 4 chronic kidney disease, or unspecified chronic kidney disease (principal); J18.9 Pneumonia, unspecified organism; J96.21 Acute and chronic respiratory failure with hypoxia; N17.0 Acute kidney failure with tubular necrosis; I50.33 Acute on chronic diastolic (congestive) heart failure; N18.4 Chronic kidney disease, stage 4 (severe); J44.0 Chronic obstructive pulmonary disease with (acute) lower respiratory infection; Z20.822 Contact with and (suspected) exposure to COVID-19; F17.210 Nicotine dependence, cigarettes, uncomplicated; Z60.2 Problems related to living alone; G47.33 Obstructive sleep apnea (adult) (pediatric); R53.81 Other malaise; E87.5 Hyperkalemia; Z74.1 Need for assistance with personal care; Z66 Do not resuscitate; Z51.5 Encounter for palliative care; E11.22 Type 2 diabetes mellitus with diabetic chronic kidney disease; I50.9 Heart failure, unspecified; Z79.82 Long term (current) use of aspirin; Z79.899 Other long term (current) drug therapy; Z91.19 Patient's noncompliance with other medical treatment and regimen
CPT/HCPCS: 10779